=== PATIENT | male | born 1980 | race African-American/Black ===

== ENCOUNTER 2022-12-26 08:05 | Emergency (ER) | payer MEDICAID, OTHER ==
[~2022-12-26] VITALS: Ht 406.4 cm; Wt 125.0 kg
[~2022-12-26 08:05] MED LIST: IBUP-1986 PO
[2022-12-26 08:09] VITALS: TEMP 97.8
[2022-12-26] MEDS ORDERED: cloNIDine 0.1 mg tablet PO ONE (09:10)
[2022-12-26 09:17] VITALS: PULSE 99; RESP 18; O2SAT 99
[2022-12-26 10:30] VITALS: BP 142/102
== END 2022-12-26 10:32 | disposition home or self-care (01) ==
LOC: ER 08:06
DX: F15.10 Other stimulant abuse, uncomplicated (principal); R03.0 Elevated blood-pressure reading, without diagnosis of hypertension; Z79.899 Other long term (current) drug therapy
CPT/HCPCS: 93005; 99283